=== PATIENT | female | born 1980 | race Caucasian/White ===

== ENCOUNTER 2016-11-07 17:06 | Emergency (ER) | payer OTHER ==
[~2016-11-07] VITALS: Ht 165.1 cm; Wt 114.0 kg
[~2016-11-07 17:06] MED LIST: BIOTIN 5000MCG PO; CEFTIN250 MG PO; DAILY VALUE1 EACH PO; LEVAQUIN750 MG PO; ORTHO TRI-CY1 TABLE1 PO; PHENERGAN DM SYR1 ML PO; TAMIFLU75 MG PO; TORADOL10 MG PO; TRINESSA1 EACH PO
[2016-11-07] MEDS ORDERED: ULTRACET1 TABLET PO (18:49)
[2016-11-07] MEDS ORDERED: LIDODERM 5% P1 PATCH TD (18:49)
[2016-11-07 19:19] VITALS: BP 135/91
== END 2016-11-07 19:20 | disposition home or self-care (01) ==
LOC: EME 17:06
DX: S39.012A Strain of muscle, fascia and tendon of lower back, initial encounter (principal); X50.0XXA Overexertion from strenuous movement or load, initial encounter
CPT/HCPCS: 99281; 99283

== ENCOUNTER 2016-11-10 12:43 | Emergency (ER) | payer OTHER ==
[~2016-11-10] VITALS: Ht 165.1 cm; Wt 114.7 kg
[~2016-11-10 12:43] MED LIST changes: +LIDODERM 5% P1 PATCH TD; +ULTRACET1 TABLET PO
[2016-11-10] MEDS ORDERED: VALIUM5 MG PO (14:08)
[2016-11-10] MEDS ORDERED: PREDNISONE10 MG PO (14:08)
[2016-11-10 14:15] VITALS: BP 144/93
== END 2016-11-10 14:21 | disposition home or self-care (01) ==
LOC: EME 12:43
DX: M54.40 Lumbago with sciatica, unspecified side (principal)
CPT/HCPCS: 99281; 99283

== ENCOUNTER 2016-12-27 10:28 | Emergency (ER) | payer OTHER ==
[~2016-12-27] VITALS: Ht 165.1 cm; Wt 118.9 kg
[~2016-12-27 10:28] MED LIST changes: +PREDNISONE10 MG PO; +VALIUM5 MG PO
[2016-12-27] MEDS ORDERED: PERCOCET 10/1 TABLET PO (13:22)
[2016-12-27 14:04] VITALS: BP 147/91
[2016-12-30] MEDS ORDERED: AMOXICILLIN875 MG PO (16:22)
[2016-12-30] MEDS ORDERED: HYDROCHLOROTHIA25 MG PO (16:22)
== END 2016-12-27 14:05 | disposition home or self-care (01) ==
LOC: EME 10:28
DX: S82.831A Other fracture of upper and lower end of right fibula, initial encounter for closed fracture (principal); S82.51XA Displaced fracture of medial malleolus of right tibia, initial encounter for closed fracture; S93.04XA Dislocation of right ankle joint, initial encounter; X58.XXXA Exposure to other specified factors, initial encounter; Y93.A5 Activity, obstacle course
CPT/HCPCS: 73590; 73600; 73610; 99281; 99285; J2270; J3010

== ENCOUNTER → 2016-12-30 | Outpatient (CLI) | payer OTHER ==
[~2016-12-30] MED LIST changes: +AMOXICILLIN875 MG PO; +HYDROCHLOROTHIA25 MG PO; +PERCOCET 10/1 TABLET PO
== END | disposition home or self-care (01) ==
LOC: CDC 12:13
DX: R94.31 Abnormal electrocardiogram [ECG] [EKG] (principal); M79.671 Pain in right foot
CPT/HCPCS: 93000

== ENCOUNTER 2017-01-01 08:54 | Day surgery (SDC) | payer OTHER ==
[~2017-01-01] VITALS: Ht 165.1 cm; Wt 113.4 kg
[2017-01-01 09:25] VITALS: BP 134/82
[2017-01-01 19:03] VITALS: BP 192/100
[2017-01-01 20:04] VITALS: BP 134/84
== END 2017-01-01 20:38 | disposition home or self-care (01) ==
LOC: SDC 08:54
PROC: 0QSG04Z Reposition Right Tibia with Internal Fixation Device, Open Approach (ICD-10-PCS; principal; 2017-01-01)
DX: S82.851A Displaced trimalleolar fracture of right lower leg, initial encounter for closed fracture (principal); I10 Essential (primary) hypertension; Z83.3 Family history of diabetes mellitus; Z82.61 Family history of arthritis; Z91.040 Latex allergy status; Z88.5 Allergy status to narcotic agent; X50.1XXA Overexertion from prolonged static or awkward postures, initial encounter; Y93.79 Activity, other specified sports and athletics; Y92.838 Other recreation area as the place of occurrence of the external cause
CPT/HCPCS: 73600; 76000; C1713; J0131; J0690; J1100; J2250; J2405; J2795; J3010; S0020